=== PATIENT | male | born 1940 | race African-American/Black ===

== ENCOUNTER → 2017-06-13 | Outpatient (CLI) | payer MEDICARE ==
[2017-06-13 12:30] LABS: ANION GAP 7 MEQ/L (8-16); BLOOD UREA NITROGEN 10 MG/DL (7-18); CALCIUM LEVEL 9.4 MG/DL (8.8-10.2); CARBON DIOXIDE LEVEL 30 MEQ/L (21-32); CHLORIDE LEVEL 103 MEQ/L (98-107); CHOLESTEROL LEVEL 156 MG/DL (<200); CREATININE FOR GFR 0.86 MG/DL (0.70-1.30); GLOMERULAR FILTRATION RATE > 60.0 (>42); GLUCOSE, FASTING 112 MG/DL (83-110); POTASSIUM SERUM 4.1 MEQ/L (3.5-5.1); SODIUM LEVEL 140 MEQ/L (136-145); TRIGLYCERIDES LEVEL 250 MG/DL (<150)
[2017-06-14 11:21] LABS: ALBUMIN 4.27 GM/DL (3.29-5.55); GAMMA GLOBULIN % 12.5 % (11.1-18.8)
== END ==
LOC: M WUC 10:04
PROVIDERS: ATTEND Internal Medicine
DX: R97.20 Elevated prostate specific antigen [PSA] (principal); E11.9 Type 2 diabetes mellitus without complications; D47.2 Monoclonal gammopathy

== ENCOUNTER → 2020-03-17 | Outpatient (CLI) | payer MEDICARE | LOC: M WUC 12:22 | PROVIDERS: ATTEND Radiology Therapeutic Radiology | DX: C61 Malignant neoplasm of prostate (principal) ==

== ENCOUNTER → 2020-06-27 | Outpatient (CLI) | payer MEDICARE ==
[2020-06-30 20:08] LABS: PSA TOTAL 1.3 ng/mL (0.0-4.0)
== END ==
LOC: M WUC 12:51
PROVIDERS: ATTEND Urology
DX: C61 Malignant neoplasm of prostate (principal)